=== PATIENT | male | born 1965 | race Caucasian/White ===

== ENCOUNTER 2016-03-26 08:08 | Outpatient (CLI) | payer OTHER ==
--- NOTE | 2016-03-26 09:11 | DIAGNOSTIC IMAGING REPORT ---
PROCEDURE: CT HEAD W/WO CONTRAST INDICATION: MELANOMA, initial encounter TECHNIQUE: Noncontrast axial images. Following 75 ml of Isovue 370, axial images were repeated. Sagittal and coronal reformations. COMPARISON: None. FINDINGS: Brain and ventricles are normal. No evidence of an acute process or hemorrhage. No enhancing lesions are identified. Sinuses and mastoids are normal. IMPRESSION: 1. Negative head CT. All CT scans at this facility use dose modulation, iterative reconstruction, and/or weight-based dosing when appropriate to reduce radiation dose to as low as reasonably achievable.
--- NOTE | 2016-03-26 09:55 | DIAGNOSTIC IMAGING REPORT ---
PROCEDURE: CT SOFT TISSUE NECK WITH CONT INDICATION: MELANOMA, follow-up TECHNIQUE: 75 ml of Isovue 300 injected intravenously and axial images were obtained from the skull base through the upper mediastinum with sagittal and coronal reformations. In addition, angled axial oblique images were obtained ( avoiding dental hardware). COMPARISON: CT soft tissue neck 01/22/2016 FINDINGS: Stable postsurgical changes along the left jugular vein without evidence of a recurrent mass. Improved 7 mm short axis left submandibular lymph node (previously 1.1 cm). There has been marked improvement of the supraclavicular lymph nodes, largest on the right measures 3 mm (previously 7 mm short axis). Normal oropharynx and nasopharynx. Normal airway. The parotid, submandibular and thyroid glands are unremarkable. There are improving several small pulmonary nodules measuring 2 mm (previously 4 mm). Visualized mastoids and sinuses are clear. Multiple stable lytic lesions. IMPRESSION: 1. Stable surgical changes along the left jugular vein 2. Improved small left submandibular and supraclavicular lymph nodes 3. Improved pulmonary nodules 4. Stable multiple lytic osseous metastases All CT scans at this facility use dose modulation, iterative reconstruction, and/or weight-based dosing when appropriate to reduce radiation dose to as low as reasonably achievable.
--- NOTE | 2016-03-26 10:41 | DIAGNOSTIC IMAGING REPORT ---
PROCEDURE: CT THORAX ABD PELVIS W/CONT INDICATION: MELANOMA, follow-up TECHNIQUE: 75 ml of Isovue 300 injected intravenously and axial images were obtained of the entire thorax, abdomen, and pelvis with sagittal and coronal reformations. COMPARISON: CT chest/abdomen/pelvis 01/22/2016 FINDINGS: THORAX: There has been marked reduction in number and size of the previously noted multiple pulmonary nodules, with most nodules resolving completely. There are only a few remaining nodules, largest in the right posterior sulcus measures 5 mm (previously 11 mm). There are small bilateral axillary and anterior mediastinal lymph nodes which have also decreased in size. There are several anterior chest wall subcutaneous nodules which have all decreased in size, largest on the left measures 2.5 mm short axis (previously 8 mm). No effusion. Normal thoracic aorta. Normal heart size. No pericardial effusion. Multiple stable lytic osseous lesions. ABDOMEN: Prior study performed without contrast with hepatic lesions more visible on today's contrast-enhanced exam. However, there appears to be progression in the number lesions. Slight improvement of the small ascites in the pericolic gutter. Mild splenomegaly (15.6 cm) with a few hypo enhancing lesions which appear stable. The gallbladder, pancreas, adrenal glands and right kidney are unremarkable. Left parapelvic cyst. There are multiple bilateral perinephric soft tissue nodules which have all decreased in size. There it is mild periaortic adenopathy with progression. Small mesenteric lymph nodes are present, unchanged. Minor atherosclerosis of the aorta. Multiple stable lytic osseous lesions. PELVIS: Markedly improved small ascites. Resolved pelvic adenopathy, largest lymph node measuring less than 1 cm. Improved anterior subcutaneous nodules with minor residual tissue measuring less than 2 mm. Multiple stable osseous lytic lesions IMPRESSION: 1. Marked reduction in the size and number of pulmonary nodules with only a few residual nodules measuring less than 5 mm. Improved subcutaneous nodules, bilateral axillary, anterior mediastinal and pelvic adenopathy. 2. Improved small ascites 3. Hepatomegaly with progression of multiple hepatic metastases. Mild splenomegaly. 4. Slight progression of periaortic adenopathy 5. Stable multiple osseous lytic lesions All CT scans at this facility use dose modulation, iterative reconstruction, and/or weight-based dosing when appropriate to reduce radiation dose to as low as reasonably achievable.
== END 2016-03-26 23:00 ==
LOC: CT SRH 08:08
DX: C43.9 Malignant melanoma of skin, unspecified (principal); C79.51 Secondary malignant neoplasm of bone; C78.7 Secondary malignant neoplasm of liver and intrahepatic bile duct; R59.0 Localized enlarged lymph nodes; R16.0 Hepatomegaly, not elsewhere classified; R18.8 Other ascites

== ENCOUNTER 2016-07-16 07:53 | Outpatient (CLI) | payer OTHER ==
--- NOTE | 2016-07-16 11:03 | DIAGNOSTIC IMAGING REPORT ---
PROCEDURE: CT HEAD W/WO CONTRAST INDICATION: MELANOMA TECHNIQUE: Noncontrast axial images. Following 147 ml of Isovue 370, axial images were repeated. Sagittal and coronal reformations. COMPARISON: Head CT 03/26/2016 FINDINGS: Brain and ventricles are normal. No evidence of an acute process or hemorrhage. No enhancing lesions are identified. Sinuses and mastoids are normal. IMPRESSION: 1. Negative head CT.
--- NOTE | 2016-07-16 11:56 | DIAGNOSTIC IMAGING REPORT ---
PROCEDURE: CT SOFT TISSUE NECK WITH CONT INDICATION: MELANOMA TECHNIQUE: 75 ml of Isovue 300 IV contrast was administered. Axial thin-slice CT images were acquired through the neck with coronal and sagittal reformations. If needed, angled axial CT images avoiding dental hardware were acquired. COMPARISON: 03/26/2016 FINDINGS: Significant enlargement of left submandibular lymph node now measuring 13 mm, previously 7 mm. Interval enlargement of right supraclavicular lymph node measuring about 6.7 mm in short axis, previously 5 mm. Bulky high mediastinal adenopathy is present. 5.5 mm anterior left upper lobe lung nodule previously measured 2 mm. 3.5 mm anterior left upper lobe lung nodule previously measured 2 mm. Multiple lytic osseous lesions are larger and more numerous. Surgical changes in the left carotid sheath. Glandular structures are symmetric. Vascular structures are patent. Parapharyngeal fat planes are normally maintained. Mucosal surfaces are normal. The visible sinuses and mastoids are clear. IMPRESSION: 1. Interval enlargement of right and left neck lymph nodes as described. 2. Interval enlargement of left upper lobe lung nodules. 3. Interval increase in lytic osseous metastases.
--- NOTE | 2016-07-16 12:55 | DIAGNOSTIC IMAGING REPORT ---
PROCEDURE: CT THORAX ABD PELVIS W/CONT INDICATION: MELANOMA TECHNIQUE: 75 ml of Isovue 300 injected intravenously and axial images were obtained of the entire thorax, abdomen, and pelvis with sagittal and coronal reformations. COMPARISON: 03/26/2016 and 01/22/2016. FINDINGS: THORAX: Bulky right axillary adenopathy measuring 18 and 24 mm. Mild left axillary soft tissue nodules. Numerous anterior chest wall nodules are larger. Bulky anterior mediastinal adenopathy, specifically a large prevascular lymph node measuring 15 mm short axis has increased in size. Bulky posterior mediastinal adenopathy is stable. No new hilar adenopathy. Interval increase in size and number of numerous bilateral pulmonary lung nodules, one of the largest in the right lung measures about 12 mm in short axis, previously 2 mm, and one the largest in the left lung at the lingula measures about 11 mm, previously not present. No pleural effusion. No pericardial effusion. Stable heart size. Numerous osseous lytic lesions throughout the spine with a new small central compression fracture in T6. ABDOMEN: Severely enlarged liver with innumerable hypodense lesions and a trace amount of perihepatic ascites. Hypodense lesions in the enlarged (14.7 cm) spleen. Innumerable retroperitoneal soft tissue nodules. Tiny hypodense lesions in each kidney. No visible pancreatic ductal dilatation. Normal caliber abdominal aorta. The stomach and bowel loops are nonobstructed. Multiple small mesenteric nodules. Innumerable osseous lytic lesions. PELVIS: The liver tip extends into the right pelvis anteriorly. Small amount of ascites in the posterior pelvis. Bilateral pelvic sidewall adenopathy, multiple scattered soft tissue nodules, and left anterior perirectal soft tissue mass now measuring about 3.3 cm, previously 1.9 cm. Urinary bladder is intact. No evidence of urinary obstruction. Innumerable lytic lesions in the osseous structures including both proximal femurs, worse since previous studies. Multiple posterior subcutaneous soft tissue nodules have also enlarged. IMPRESSION: 1. Worsening of extensive metastatic melanoma. Disease has significantly worsened since the most recent CT and is slightly worse since the CT from 2015. 2. Increase in axillary and mediastinal adenopathy, and multiple pulmonary parenchymal nodules. 3. Severe enlargement of the liver containing multiple nodules. 4. Enlarged retroperitoneal, mesenteric, and subcutaneous soft tissue nodules in the abdomen and pelvis. 5. Increase adenopathy and soft tissue masses in the pelvis. 6. Multiple osseous lytic metastasis including minor T6 superior endplate compression, and bilateral proximal femur lesions. 7. Findings called to Dr. Avalos. All CT scans at this facility use dose modulation, iterative reconstruction, and/or weight-based dosing when appropriate to reduce radiation dose to as low as reasonably achievable.
== END 2016-07-16 23:00 ==
LOC: CT SRH 07:53
DX: C43.9 Malignant melanoma of skin, unspecified (principal); C79.51 Secondary malignant neoplasm of bone; R59.0 Localized enlarged lymph nodes; R91.1 Solitary pulmonary nodule; R16.0 Hepatomegaly, not elsewhere classified